=== PATIENT | female | born 1985 | race Caucasian/White ===

== ENCOUNTER 2018-09-05 13:08 | Emergency (ER) | payer SELFPAY ==
[2018-09-05 13:41] VITALS: BP 140/87; PULSE 90; RESP 14; O2SAT 98
[2018-09-05 14:10] VITALS: PULSE 80; RESP 16; O2SAT 98
[2018-09-05] MEDS: ALBUTEROL/IPRATROPIUM 3 ML AMPUL INH (14:10)
--- NOTE | 2018-09-05 14:27 | ED_ITS ---
HPI - URI/Sore Throat <Eve James PA-C - Last Filed: 09/05/18 22:04> General Chief Complaint: Upper Respiratory Symptoms Stated Complaint: SOB, Sick x5 days Time Seen by Provider: 09/05/18 14:26 Source: patient Mode of arrival: ambulatory Limitations: no limitations History of Present Illness HPI Narrative: This 33-year-old female comes to ED due to respiratory symptoms. She states she had onset of productive cough about 5 days ago, bringing up greenish phlegm and mucus. She then began to have sinus pain all over her sinuses nasal drainage. She states that she has had intermittent chills and sweats, has not taken her temperature. She states that her chest is congested and sore from coughing, but not wheezing or short of breath. She states she has had intermittent right earache, and her throat is itchy and scratchy. She denies all over body aches. States that she might have had a rash on her neck for a second but none currently. 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 No recent travel. She denies any other complaints on systems review. She is a smoker Related Data Home Medications Medication Instructions Recorded Confirmed lamotrigine [Lamictal] 200 mg PO DAILY 09/05/18 09/05/18 Allergies Allergy/AdvReac Type Severity Reaction Status Date / Time No Known Drug Allergies Allergy Verified 09/05/18 13:44 Review of Systems <Eve James PA-C - Last Filed: 09/05/18 22:04> Review of Systems All systems reviewed & are unremarkable except as noted in HPI and below PFSH <Eve James PA-C - Last Filed: 09/05/18 22:04> Comment: Smokes THC and tobacco, rare EtOH Exam <EZIO Stone Last Filed: 09/05/18 22:04> Narrative Exam Narrative: GENERAL APPEARANCE: Patient sitting comfortably, in no distress. HEAD: Generalized sinus tenderness EYES: PERRL, EOMI. EARS: Normal auditory canals, TMS intact, right is normal, left slightly retracted ORAL CAVITY: Normal oropharynx. THROAT: Mild erythema, no exudate, PND noted NECK/THYROID: Neck supple, full range of motion, shoddy anterior cervical lymphadenopathy. LUNGS: Coarse, congested breath sounds without prerna wheezes or crackles, clear with cough HEART: RRR without murmur, nl S1, S2, no S3 or S4. DERMATOLOGIC: No exanthem Initial Vital Signs Initial Vital Signs: Vital Signs Pulse Rate 90 09/05/18 13:41 Respiratory Rate 14 09/05/18 13:41 Blood Pressure 140/87 09/05/18 13:41 Pulse Oximetry 98 09/05/18 13:41 <Natty Kimble DO - Last Filed: 09/09/18 08:09> Initial Vital Signs Initial Vital Signs: Vital Signs Pulse Rate 90 09/05/18 13:41 Respiratory Rate 14 09/05/18 13:41 Blood Pressure 140/87 09/05/18 13:41 Pulse Oximetry 98 09/05/18 13:41 Course <Eve James PA-C - Last Filed: 09/05/18 22:04> Orders Ordered: Discontinued Medications Albuterol/Ipratropium (Duoneb) 3 ml INH NOW ONE Stop: 09/05/18 14:08 Last Admin: 09/05/18 14:10 Dose: 3 ml Vital Signs - 8 hr 09/05/18 14:10 09/05/18 15:21 Pulse Rate 80 67 Respiratory Rate 16 16 Blood Pressure 115/75 Pulse Oximetry 98 100 <DO Ginette Weber Last Filed: 09/09/18 08:09> Orders Ordered: Discontinued Medications Albuterol/Ipratropium (Duoneb) 3 ml INH NOW ONE Stop: 09/05/18 14:08 Last Admin: 09/05/18 14:10 Dose: 3 ml Vital Signs - 8 hr 09/05/18 14:10 09/05/18 15:21 Pulse Rate 80 67 Respiratory Rate 16 16 Blood Pressure 115/75 Pulse Oximetry 98 100 Discharge Plan Departure Patient Disposition: Home Clinical Impression: Sinusitis Discharge Date/Time: 09/05/18 15:21 Interventions: ED Discharge Assessment Last Done: 09/05/18 15:21 Instructions: DI for Sinusitis Activity Restrictions/Additional Instructions: Please rest. Try Tylenol 8 hr or arthritis (650 mg per pill, 1 tab every 8 hr) which is a low dose, to help with aches and fever symptoms. Add Zyrtec ( cetirizine) 10 mg daily to help with drainage. Also start pseudoephedrine (ask for this from the pharmacist behind the counter) to help with your congestion. Also add Mucinex or equivalent for the chest congestion. The vast majority of sinus infection are viruses that resolve on their own. They can cause widespread sinus pain like you have, fever, and cough due to the drainage. These typically resolve within 10-14 days. Please remain off of work until you are feeling better and not coughing. Please schedule a follow-up with your PCP in about a week so you can recheck if symptoms are not resolving. Return as we talked about if you are acutely worse Prescriptions: No Action lamotrigine [Lamictal] 200 mg Tablet 200 mg PO DAILY RF: 0 Referrals: Rosy Burgess ARNP [Non-Staff] - Stand Alone Forms: Work Release Note <Natty Kimble DO - Last Filed: 09/09/18 08:09> Cosign ED Attending Che[employer] Attestation: I was immediately available in the department for consultation. Documentation has been reviewed. I agree with assessment and plan.
[2018-09-05 15:21] VITALS: BP 115/75; PULSE 67; RESP 16; O2SAT 100
== END 2018-09-05 15:21 | disposition home or self-care (01) ==
PROVIDERS: Emergency Provider Internal Medicine
DX: J01.90 Acute sinusitis, unspecified (principal)
CPT/HCPCS: 94640; 99282; 99283

== ENCOUNTER 2019-01-03 02:16 | Emergency (ER) | payer OTHER, SELFPAY ==
[2019-01-03 02:18] VITALS: BP 116/70; PULSE 78; RESP 16; TEMP 36.6; O2SAT 98; BMI 36.0
--- NOTE | 2019-01-03 02:44 | DI.CT.S_ITS ---
PROCEDURE: CT ABDOMEN PELVIS W CON INDICATIONS: Left lower quadrant pain with Gi bleed TECHNIQUE: After the administration of intravenous contrast, 5 mm thick sections acquired from the diaphragm to the symphysis. 5 mm coronal and sagittal reformats were acquired. For radiation dose reduction, the following was used: automated exposure control, adjustment of mA and/or kV according to patient size. COMPARISON: None. FINDINGS: Image quality: Excellent. ABDOMEN: Lung bases: Lung bases are clear. Heart size is normal. Solid organs: Liver is normal in size and enhancement. Gallbladder is decompressed. Biliary system is non dilated. Pancreas enhances normally. Spleen is normal in size and enhancement. No adrenal nodules. Kidneys demonstrate normal size and enhancement, without hydronephrosis. 3 mm punctate right nephrolith without obstruction. Peritoneum and bowel: There is mild circumferential wall thickening of the transverse colon greater than expected for degree of distention. Minimal circumferential wall thickening of the sigmoid colon is favored to represent thickening due to to complete decompression. Visualized appendix is fluid-filled and measures at the upper limits of normal. However, no secondary findings of acute appendicitis. Remaining bowel loops demonstrate normal wall thickness and caliber. No free fluid or air. Nodes and vessels: No retroperitoneal or mesenteric adenopathy by size criteria. Aorta and inferior vena cava are normal in size. Miscellaneous: No ventral hernias. PELVIS: Genitourinary: Bladder wall thickness is normal. Miscellaneous: No inguinal hernias or adenopathy. Bones: No suspicious bony lesions. No vertebral body compression fractures. IMPRESSION: 1. Mild circumferential wall thickening of the transverse colon which may be related to an infectious/inflammatory colitis versus mild thickening from incomplete distention. 2. Nonobstructing 3 mm right nephrolith. 3. No CT evidence for obstruction or acute appendicitis. Findings are concordant with preliminary radiology report. Dictated by: Eren Marquez M.D. on 01/03/2019 at 9:14 Approved by: Eren Marquez M.D. on 01/03/2019 at 9:34
[2019-01-03 02:59] LABS: Add Manual Diff / Slide Review NO; Basophils Absolute Auto 0 /uL (0-100); Basophils Percent Auto 0.4 % (0-2); Eosinophils Absolute Auto 100 /uL (0-450); Eosinophils Percent Auto 0.9 % (2-4); Hematocrit 39.8 % (36-46); Hemoglobin 13.5 g/dL (12.0-16.0); Lymphocytes Absolute Auto 2900 /uL (1100-4500); Lymphocytes Percent Auto 30.2 % (25-40); Mean Corpuscular HGB Conc 33.9 % (30-36); Mean Corpuscular Volume 88.6 fL (80-100); Monocytes Absolute Auto 800 /uL (0-900); Monocytes Percent Auto 8.5 % (3-14); Neutrophils Absolute Auto 5700 /uL (1500-7000); Platelet Count 282 X10^3/uL (150-400); Red Cell Distribution Width 13.3 % (11.6-14.8); White Blood Cell Count 9.5 X10^3/uL (4.5-11.0)
[2019-01-03 03:09] LABS: Alanine Aminotransferase 19 IU/L (9-52); Albumin 4.4 g/dL (3.5-5.0); Albumin Globulin Ratio 1.3 (1.0-2.8); Alkaline Phosphatase 69 U/L (38-126); Aspartate Aminotransferase 19 IU/L (14-36); BUN Creatinine Ratio 17.5 (6-22); Bilirubin Total 0.2 mg/dL (0.2-1.3); Blood Urea Nitrogen 14 mg/dL (7-17); Calcium 9.1 mg/dL (8.4-10.2); Carbon Dioxide 24 mmol/L (22-32); Chloride 104 mmol/L (98-107); Estimated Glomerular Filt Rate > 60.0 mL/min (>60); Globulin 3.4 g/dL (1.7-4.1); Glucose 98 mg/dL (70-100); HEMOLYSIS < 15 (0-50); Lipase 81 U/L (23-300); Potassium 4.1 mmol/L (3.4-5.1); Sodium 140 mmol/L (137-145); Total Protein 7.8 g/dL (6.3-8.2)
--- NOTE | 2019-01-03 04:32 | ED_ITS ---
HPI - GI Bleed General Chief complaint: GI Bleed Stated complaint: RECTAL BLEEDING Time Seen by Provider: 01/03/19 02:23 Source: patient Mode of arrival: ambulatory Limitations: no limitations History of Present Illness HPI Narrative: Patient is a 33 female presents with his 1 episode bright red blood per rectum. She has been having some left lower quadrant pain. In fact she was constipated she took some laxatives was doing better and then this evening she had 1 episode of his blood in the toilet. She said that there was actually stool in the toilet but that the water was quite red. His she denies any painful bowel movements no history of hemorrhoids. She does have a history of diverticulosis but not diverticulitis. She also has IBS and has had a colonoscopy and a GI consult in the past. Known family history of colon cancer although they do have history of other cancers. No vomiting no fever. No further episodes of bloody stool Onset (ago): minute(s) Severity: mild Relieving factors: none Exacerbating factors: none Associated symptoms: denies other symptoms Related Data Home Medications Medication Instructions Recorded Confirmed lamotrigine [Lamictal] 200 mg PO DAILY 09/05/18 01/03/19 dicyclomine 20 mg PO QID PRN 01/03/19 01/03/19 Allergies Allergy/AdvReac Type Severity Reaction Status Date / Time No Known Drug Allergies Allergy Verified 09/05/18 13:44 Review of Systems Review of Systems GENERAL: Denies chills, fatigue, malaise, fever, sweats, travel HEENT: Denies sinus pain, ear pain, sore throat, difficulty swallowing, neck pain RESPIRATORY: Denies dyspnea, cough, wheezing, hemoptysis, sputum. CARDIOVASCULAR: Denies chest pain, palpitations, orthopnea, edema GASTROINTESTINAL: See HPI : Denies dysuria, frequency, incontinence, hematuria, urinary retention, flank pain. MUSCULOSKELETAL: Denies weakness, joint pain, or bony pain SKIN: No rash, no erythema, no pruritus NEUROLOGIC: Denies weakness, dizziness, headache, numbness, change in speech, confusion PSYCHIATRIC: No concerning psychosocial issues. 12 point review of systems is negative except for those stated above and HPI [facility] Medical History Acid reflux disease with ulcer (Chronic) Bipolar depression (Chronic) Diverticulosis (Chronic) Dysmenorrhea (Chronic) History of ulcer disease (Chronic) Surgical History History of hand surgery (Resolved) Family History Other Family history non-contributory Social History Smoking Status: Current every day smoker Family History Other Family history non-contributory Social History Smoking Status: Current every day smoker Exam Initial Vital Signs Initial Vital Signs: Vital Signs Temperature 97.9 F 01/03/19 02:18 Pulse Rate 78 01/03/19 02:18 Respiratory Rate 16 01/03/19 02:18 Blood Pressure 116/70 01/03/19 02:18 Pulse Oximetry 98 01/03/19 02:18 GENERAL: Well-appearing, well-nourished and in no acute distress. HEENT: Head atraumatic,EOMI, pupils reactive, CARDIOVASCULAR: Regular rate and rhythm without murmurs, rubs or gallops. RESPIRATORY: Breath sounds equal bilaterally, no wheezes rales or rhonchi. ABDOMEN: Soft, nontender. Normoactive bowel sounds all 4 quadrants. No guarding or rebound. RECTAL: No hemorrhoids no gross blood rectally no internal hemorrhoids : No CVA tenderness EXTREMITIES: Normal range of motion, no clubbing or edema. Neurovascularly intact NEUROLOGICAL: Alert and oriented x4.Normal gait and speech. Cranial nerves II through XII grossly intact. SKIN: Warm, dry, no laceration, no petechiae, no rashes or lesions. Course Orders Ordered: ED Orders 01/03/19 02:44 CT abdomen pelvis w con Stat 01/03/19 02:49 Complete Blood Count AUTO DIFF Stat Comprehensive Metabolic Panel Stat Lipase Stat Vital Signs - 8 hr 01/03/19 02:18 Temperature 97.9 F Pulse Rate 78 Respiratory Rate 16 Blood Pressure 116/70 Pulse Oximetry 98 MDM - GI Bleed Lab Data Attestation: I reviewed the patient's lab results. Result diagrams: 01/03/19 02:49 01/03/19 02:49 Lab Results 01/03/19 01/03/19 Range/Units 02:49 02:49 WBC 9.5 (4.5-11.0) X10^3/uL RBC 4.50 (4.0-5.2) X10^6/uL Hgb 13.5 (12.0-16.0) g/dL Hct 39.8 (36-46) % MCV 88.6 (80-100) fL MCH 30.0 (26-34) PG MCHC 33.9 (30-36) % RDW 13.3 (11.6-14.8) % Plt Count 282 (150-400) X10^3/uL Neut % (Auto) 60.0 (50-75) % Lymph % (Auto) 30.2 (25-40) % Craig % (Auto) 8.5 (3-14) % Eos % (Auto) 0.9 L (2-4) % Baso % (Auto) 0.4 (0-2) % Neut # (Auto) 5700 (6181-0478) /uL Lymph # (Auto) 2900 (0385-1000) /uL Craig # (Auto) 800 (0-900) /uL Eos # (Auto) 100 (0-450) /uL Baso # (Auto) 0 (0-100) /uL Sodium 140 (137-145) mmol/L Potassium 4.1 (3.4-5.1) mmol/L Chloride 104 (98-107) mmol/L Carbon Dioxide 24 (22-32) mmol/L BUN 14 (7-17) mg/dL Creatinine 0.80 (0.52-1.04) mg/dL Estimated GFR > 60.0 (>60) mL/min BUN/Creatinine Ratio 17.5 (6-22) Glucose 98 (70-100) mg/dL Calcium 9.1 (8.4-10.2) mg/dL Total Bilirubin 0.2 (0.2-1.3) mg/dL AST 19 (14-36) IU/L ALT 19 (9-52) IU/L Alkaline Phosphatase 69 (38-126) U/L Total Protein 7.8 (6.3-8.2) g/dL Albumin 4.4 (3.5-5.0) g/dL Globulin 3.4 (1.7-4.1) g/dL Albumin/Globulin Ratio 1.3 (1.0-2.8) Lipase 81 (23-300) U/L Point of Care Testing Test Results Negative Urine Dip Bedside Urine Glucose Negative Bedside Urine Bilirubin - Negative Bedside Urine Ketone - Negative Urine Specific [place] 1.030 Bedside Urine Occult Blood - Negative Bedside Urine pH 5.5 Bedside Urine Protein - Negative Bedside Urine Urobilinogen - Negative Bedside Urine Nitrite - Negative Bedside Urine Leukocytes +/- [address] scan - abdomen: Radiologist's impression: crop supervisor report: Mild diffuse circumferential wall thickening involving the transverse colon. Although these findings may be related to under distention and mild colitis also have this appearance. 3 mm nonobstructing right mid pole intrarenal calculus. No evidence of obstruction obstructive uropathy or acute appendicitis. MDM Narrative Medical decision making narrative: At this time patient has no fever no leukocytosis. I recommend no antibiotics at this time. She is hemodynamically stable hemoglobin and hematocrit well above normal limits. no further episodes of bleeding in the ED. She has a GI doctor. I recommend she follow up with. Discharge Plan Departure Patient Disposition: Home Clinical Impression: Colitis with rectal bleeding Instructions: Gastrointestinal Bleeding, DI for Colitis Activity Restrictions/Additional Instructions: *You have been diagnosed with rectal bleeding, colitis *What to do: At this time I recommend no antibiotics, however if things continue to worsen he may need antibiotics. May be a clear liquid diet. Recommend following up with GI doctor may require repeat colonoscopy *Continue to take medications as directed Tylenol 650 mg every 4-6 hours if needed for pain *Follow up with your primary care provider in 2-3 days *Return to ER if you should have multiple episodes of of bloody stools dizziness, increasing pain or any new, worsening or concerning symptoms Prescriptions: No Action lamotrigine [Lamictal] 200 mg Tablet 200 mg PO DAILY RF: 0 dicyclomine 20 mg Tablet 20 mg PO QID PRN (Reason: Pain, Moderate) RF: 0
[2019-01-03 04:52] VITALS: BP 98/69; PULSE 76; RESP 16; O2SAT 98
== END 2019-01-03 04:52 | disposition home or self-care (01) ==
PROVIDERS: Emergency Provider Emergency Medicine
DX: K52.9 Noninfective gastroenteritis and colitis, unspecified (principal); K59.00 Constipation, unspecified
CPT/HCPCS: 36591; 74177; 80053; 81003; 81025; 83690; 85025; 99283; 99284; Q9967

== ENCOUNTER 2019-07-29 10:09 | Emergency (ER) | payer OTHER, SELFPAY ==
[2019-07-29 10:18] VITALS: BP 125/98; PULSE 80; RESP 14; TEMP 35.8; O2SAT 98
--- NOTE | 2019-07-29 10:30 | ED.ABDPAIN ---
HPI - Abdominal Pain General Chief Complaint: Abdominal Pain Stated Complaint: abdominal pain right side Time Seen by Provider: 07/29/19 10:17 Source: patient Mode of arrival: Ambulatory Limitations: no limitations History of Present Illness HPI narrative: The patient is a 34-year-old female who presents with sudden onset right lower quadrant pain and right flank pain. It started about 2 hours ago. It comes and goes in waves radiating from the flank to lower abdomen. She has no prior history of kidney stone. She states that she does have a history of ovarian cyst but nothing like this. She feels nauseous need an vomited prior to arrival. Last evening she did not feel so great but was able to eat and not have any difficulty. MD complaint: flank pain Onset (ago): hour(s) (2) Pain Consistency: constant Location: RLQ Severity: moderate Quality: stabbing Radiation: R flank Related Data Home Medications Medication Instructions Recorded Confirmed lamotrigine [Lamictal] 200 mg PO DAILY 09/05/18 01/03/19 dicyclomine 20 mg PO QID PRN 01/03/19 01/03/19 Previous Rx's Medication Instructions Recorded hydrocodone-acetaminophen 1 tab PO Q6H PRN #10 tab 07/29/19 ondansetron 4 mg PO Q8H PRN #10 tab 07/29/19 sulfamethoxazole-trimethoprim 1 tab PO BID 7 Days #14 tab 07/29/19 [Bactrim DS] Allergies Allergy/AdvReac Type Severity Reaction Status Date / Time No Known Drug Allergies Allergy Verified 09/05/18 13:44 Review of Systems Review of Systems Narrative: GENERAL: Denies chills, fatigue, malaise, fever, sweats, travel HEENT: Denies sinus pain, ear pain, sore throat, difficulty swallowing, neck pain RESPIRATORY: Denies dyspnea, cough, wheezing, hemoptysis, sputum. CARDIOVASCULAR: Denies chest pain, palpitations, orthopnea, edema GASTROINTESTINAL: Denies nausea, vomiting, abdominal pain, diarrhea, constipation, melena. : See HPI MUSCULOSKELETAL: Denies weakness, joint pain, or bony pain SKIN: No rash, no erythema, no pruritus NEUROLOGIC: Denies weakness, dizziness, headache, numbness, change in speech, confusion PSYCHIATRIC: No concerning psychosocial issues. 12 point review of systems is negative except for those stated above and HPI Patient History Medical History Acid reflux disease with ulcer (Chronic) Bipolar depression (Chronic) Diverticulosis (Chronic) Dysmenorrhea (Chronic) History of ulcer disease (Chronic) Surgical History History of hand surgery (Resolved) Family History Other Family history non-contributory Social History Smoking Status: Current every day smoker alcohol intake frequency: 0-2 drinks per day Substance Use Type: marijuana Exam Initial Vital Signs Initial Vital Signs: Vital Signs Temperature 96.4 F L 07/29/19 10:18 Pulse Rate 80 07/29/19 10:18 Respiratory Rate 14 07/29/19 10:18 Blood Pressure 125/98 H 07/29/19 10:18 Pulse Oximetry 98 07/29/19 10:18 GENERAL: Alert young female appears in pain HEENT: Head atraumatic,EOMI, pupils reactive, face symmetric CARDIOVASCULAR: Regular rate and rhythm without murmurs, rubs or gallops. RESPIRATORY: Breath sounds equal bilaterally, no wheezes rales or rhonchi. ABDOMEN: Soft, tender right lower quadrant no guarding no rebound negative Wilson sign but does left upper abdominal pain : Right CVA tenderness EXTREMITIES: Normal range of motion, no clubbing or edema. Neurovascularly intact NEUROLOGICAL: Alert and oriented x4.Normal gait and speech. Cranial nerves II through XII grossly intact. SKIN: Warm, dry, no laceration, no petechiae, no rashes or lesions. Course Orders Ordered: ED Orders 07/29/19 10:20 Urine Culture Stat Urine Microscopic Stat 07/29/19 10:31 CT kidney ureter bladder (KUB) Stat 07/29/19 10:35 Complete Blood Count AUTO DIFF Stat Comprehensive Metabolic Panel Stat Lipase Stat Discontinued Medications Sodium Chloride (Normal Saline 0.9%) 1,000 mls @ 1,000 mls/hr IV CONT JOE Last Infusion: 07/29/19 12:05 Dose: 0 mls/hr Documented by: BRENDONARRINGTO Admin: 07/29/19 11:00 Dose: 1,000 mls/hr Documented by: BRENDONARRINGTO Ketorolac Tromethamine (Toradol) 30 mg IV NOW ONE Stop: 07/29/19 10:32 Last Admin: 07/29/19 10:39 Dose: 30 mg Documented by: CINTIA Ondansetron HCl (Zofran) 4 mg IV NOW ONE Stop: 07/29/19 10:32 Last Admin: 07/29/19 11:00 Dose: 4 mg Documented by: CINTIA Vital Signs Vital signs: Vital Signs - 8 hr 07/29/19 10:18 07/29/19 11:07 07/29/19 12:00 Temperature 96.4 F L Pulse Rate 80 54 L 53 L Respiratory Rate 14 20 18 Blood Pressure 125/98 H Blood Pressure [Left Arm] 121/73 Pulse Oximetry 98 98 99 07/29/19 12:51 07/29/19 12:57 Temperature Pulse Rate 70 64 Respiratory Rate 22 18 Blood Pressure 103/61 Blood Pressure [Left Arm] 103/61 Pulse Oximetry 100 100 MDM - Abdominal Pain Lab Data Attestation: I reviewed the patient's lab results. Result diagrams: 07/29/19 10:35 07/29/19 10:35 Labs: Lab Results 07/29/19 07/29/19 07/29/19 Range/Units 10:20 10:35 10:35 WBC 7.5 (4.5-11.0) X10^3/uL RBC 4.64 (4.0-5.2) X10^6/uL Hgb 13.8 (12.0-16.0) g/dL Hct 41.5 (36-46) % MCV 89.5 (80-100) fL MCH 29.8 (26-34) PG MCHC 33.4 (30-36) % RDW 13.7 (11.6-14.8) % Plt Count 313 (150-400) X10^3/uL Neut % (Auto) 56.9 (50-75) % Lymph % (Auto) 32.5 (25-40) % [place] % (Auto) 7.8 (3-14) % Eos % (Auto) 2.3 (2-4) % Baso % (Auto) 0.5 (0-2) % Neut # (Auto) 4300 (9409-8859) /uL Lymph # (Auto) 2400 (2011-2158) /uL [place] # (Auto) 600 (0-900) /uL Eos # (Auto) 200 (0-450) /uL Baso # (Auto) 0 (0-100) /uL Sodium 137 (137-145) mmol/L Potassium 4.0 (3.4-5.1) mmol/L Chloride 105 (98-107) mmol/L Carbon Dioxide 25 (22-32) mmol/L BUN 15 (7-17) mg/dL Creatinine 0.80 (0.52-1.04) mg/dL Estimated GFR > 60.0 (>60) mL/min BUN/Creatinine Ratio 18.8 (6-22) Glucose 110 H (70-100) mg/dL Calcium 9.2 (8.4-10.2) mg/dL Total Bilirubin 0.7 (0.2-1.3) mg/dL AST 30 (14-36) IU/L ALT 20 (<35) IU/L Alkaline Phosphatase 75 (38-126) U/L Total Protein 8.0 (6.3-8.2) g/dL Albumin 4.6 (3.5-5.0) g/dL Globulin 3.4 (1.7-4.1) g/dL Albumin/Globulin Ratio 1.4 (1.0-2.8) Lipase 169 (23-300) U/L Urine RBC 30-100/hpf H (0-5/HPF) Urine WBC 1-5/hpf (0-5/HPF) Ur Squamous Epith Cells 1-5 /hpf (0-5/HPF) Urine Bacteria Occasional (0-1) (None) Urine Mucus 1+ H (Negative) Ur Culture Indicated? Specimen cultured Point of care testing: Point of Care Testing Test Results Negative Urine Dip Bedside Urine Glucose Negative Bedside Urine Bilirubin + 1 Bedside Urine Ketone +/- 5 Urine Specific [place] 1.025 Bedside Urine Occult Blood +++ Bedside Urine pH 6.0 Bedside Urine Protein + 30 Bedside Urine Urobilinogen +/- 1mg Bedside Urine Nitrite - Negative Bedside Urine Leukocytes ++ [address] scan - abdomen: Radiologist's impression: PROCEDURE: CT KIDNEY URETER BLADDER (KUB) INDICATIONS: right flank pain TECHNIQUE: Noncontrast 5 mm thick sections acquired from the diaphragms to the symphysis. 5 mm thick coronal and sagittal reformats were then performed. For radiation dose reduction, the following was used: automated exposure control, adjustment of mA and/or kV according to patient size. COMPARISON: [facility], CT, CT ABDOMEN PELVIS W CON, 01/03/2019, 3:05. FINDINGS: Image quality: Excellent. Lung bases: Mild, poorly defined opacity can be seen dependently involving both lower lobes, which is attributed to atelectasis. Heart size is normal. Urinary system: There is a 4 mm obstructing stone seen within the right proximal ureter, adjacent to the superior L3 vertebral body. There is associated moderate right-sided hydroureter and hydronephrosis. No left-sided hydronephrosis is seen. No nonobstructing kidney stones are seen. Both kidneys are normal in size. Bladder wall thickness is normal; no calcified bladder stones. Other solid organs: Liver is normal in size. Gallbladder wall demonstrates no significant thickening. Pancreas is normal in contours. Spleen is normal in size. No adrenal nodules. Peritoneum and bowel: Unenhanced bowel loops demonstrate normal wall thickness and caliber. No free fluid or air. Mildly hyperdense material can be seen within the proximal appendix. No inflammatory changes are seen the appendix. The pharynx appears similar to the prior CT. Nodes and vessels: No retroperitoneal or mesenteric adenopathy by size criteria. Aorta and inferior vena cava are normal in caliber. Abdominal wall: No ventral hernias. Pelvis: No free pelvic fluid. No inguinal hernias or adenopathy. Bones: No suspicious bony lesions. No vertebral body compression fractures. Focal dextroconvex lower lumbar scoliotic curvature is seen. There is focal L4-L5 disc space narrowing, with apparent congenital fusion. IMPRESSION: There is a 4 mm obstructing stone seen within the right proximal ureter, with associated hydroureter and hydronephrosis. Prominent appendix, which is similar to the prior CT. No surrounding inflammatory changes are seen. 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 on 07/29/2019 at 10:46 MDM Narrative Medical decision making narrative: The patient overall is feeling better after Toradol she is found to have a 4 mm stone. Urine is also concerning for possible infection she is started on antibiotics. She can't take ibuprofen due to gastric ulcers. She is no longer nauseous. Overall feeling much better Discharge Plan Departure Patient Disposition: Home Clinical Impression: Calculus of kidney Discharge Date/Time: 07/29/19 12:58 Instructions: DI for Kidney Stones Activity Restrictions/Additional Instructions: *Increase fluid intake *Call urology office tomorrow, to schedule follow-up appointment. Strain urine, try to catch stone -If you should have fever, or pain is uncontrolled with medication at home or any other concerning symptoms return to ER for further evaluation MEDICATIONS Take Bactrim 1 tablet twice a day for 1 week for infection Take [place] every 6 hours if needed for severe pain Take Zofran every 4-6 hours if needed for nausea CONTROLLED SUBSTANCE DISCHARGE (Narcotoic/benzodiazepine) 1. You have been prescribed narcotic medications, it does have acetaminophen/Tylenol/paracetamol in it so do not take extra Tylenol or Tylenol containing products 2. Please understand that we cannot provide further refills of narcotics, benzodiazepines or controlled substances through the ED and her pain management will need to be through your provider. 3. While on these medications you cannot drive or operate heavy machinery. 4. You cannot sign legal documents or perform any duties such as this. 5. As long as you're taking opiate pain medications he should also be taking a stool softener such as Colace, Dulcolax, MiraLAX or prune juice, to help avoid constipation. Prescriptions: New hydrocodone-acetaminophen 5-325 mg tablet 1 tab PO Q6H PRN (Reason: pain) Qty: 10 RF: 0 sulfamethoxazole-trimethoprim [Bactrim DS] 800-160 mg tablet 1 tab PO BID 7 Days Qty: 14 RF: 0 ondansetron 4 mg tablet,disintegrating 4 mg PO Q8H PRN (Reason: nausea and vomiting) Qty: 10 RF: 0 No Action lamotrigine [Lamictal] 200 mg Tablet 200 mg PO DAILY RF: 0 dicyclomine 20 mg Tablet 20 mg PO QID PRN (Reason: Pain, Moderate) RF: 0
[2019-07-29] MEDS: KETOROLAC 60 MG/2 ML VIAL 30 MG IV (10:39)
[2019-07-29 10:40] LABS: Add Manual Diff / Slide Review NO; Basophils Absolute Auto 0 /uL (0-100); Basophils Percent Auto 0.5 % (0-2); Eosinophils Absolute Auto 200 /uL (0-450); Eosinophils Percent Auto 2.3 % (2-4); Hematocrit 41.5 % (36-46); Hemoglobin 13.8 g/dL (12.0-16.0); Lymphocytes Absolute Auto 2400 /uL (1100-4500); Lymphocytes Percent Auto 32.5 % (25-40); Mean Corpuscular HGB Conc 33.4 % (30-36); Mean Corpuscular Hemoglobin 29.8 PG (26-34); Mean Corpuscular Volume 89.5 fL (80-100); Monocytes Absolute Auto 600 /uL (0-900); Monocytes Percent Auto 7.8 % (3-14); Neutrophils Absolute Auto 4300 /uL (1500-7000); Neutrophils Percent Auto 56.9 % (50-75); Platelet Count 313 X10^3/uL (150-400); Red Blood Cell Count 4.64 X10^6/uL (4.0-5.2); Red Cell Distribution Width 13.7 % (11.6-14.8); White Blood Cell Count 7.5 X10^3/uL (4.5-11.0)
[2019-07-29] MEDS: SODIUM CHLORIDE 0.9% 1,000 ML 1000 ML IV (11:00)
[2019-07-29] MEDS: ONDANSETRON 4 MG/2 ML INJ IV (11:00)
[2019-07-29 11:07] VITALS: BP 121/73; PULSE 54; RESP 20; O2SAT 98
[2019-07-29 11:07] LABS: Alanine Aminotransferase 20 IU/L (<35); Albumin 4.6 g/dL (3.5-5.0); Albumin Globulin Ratio 1.4 (1.0-2.8); Alkaline Phosphatase 75 U/L (38-126); Aspartate Aminotransferase 30 IU/L (14-36); BUN Creatinine Ratio 18.8 (6-22); Bilirubin Total 0.7 mg/dL (0.2-1.3); Blood Urea Nitrogen 15 mg/dL (7-17); Calcium 9.2 mg/dL (8.4-10.2); Carbon Dioxide 25 mmol/L (22-32); Chloride 105 mmol/L (98-107); Estimated Glomerular Filt Rate > 60.0 mL/min (>60); Globulin 3.4 g/dL (1.7-4.1); Glucose 110 mg/dL (70-100); HEMOLYSIS < 15 (0-50); Lipase 169 U/L (23-300); Sodium 137 mmol/L (137-145)
[2019-07-29 12:00] VITALS: PULSE 53; RESP 18; O2SAT 99
[2019-07-29 12:42] LABS: Bacteria Urine Occasional (0-1); Culture Indicated Urine Specimen Cultured; Mucus Urine 1+ (Negative); RBC Urine 30-100/HPF (0-5/HPF); Squamous Epithelial Cell Urine 1-5 /HPF (0-5/HPF); WBC Urine 1-5/HPF (0-5/HPF)
[2019-07-29 12:51] VITALS: BP 103/61; PULSE 70; RESP 22; O2SAT 100
[2019-07-29 12:57] VITALS: BP 103/61; PULSE 64; RESP 18; O2SAT 100
== END 2019-07-29 12:58 | disposition home or self-care (01) ==
PROVIDERS: Emergency Provider Emergency Medicine
DX: N20.0 Calculus of kidney (principal)
CPT/HCPCS: 36415; 74176; 80053; 81003; 81015; 81025; 83690; 85025; 87086; 96361; 96374; 96375; 99283; 99284; J1885; J2405